=== PATIENT | male | born 1940 | race Caucasian/White ===

== ENCOUNTER 2017-01-29 16:21 | Inpatient (IN) | payer OTHER ==
[~2017-01-29] VITALS: Ht 182.9 cm; Wt 303.6 kg
[~2017-01-29 16:21] MED LIST: APRESOLINE50 MG PO; ASCORBIC ACID500 M3 PO; ASPIRIN81 M2 PO; BABY ASPIRIN81 M1 PO; BETHANECHOL CHL25 MG PO; BISACODYL5 MG PO; CARDIZEM CD,CA180 MG PO; DAILY VALUE1 EACH PO; DOCUSATE SODIU100 MG PO; DOXAZOSIN MESYLA2 MG PO; FINASTERIDE5 MG PO; GABAPENTIN100 MG PO; HEPARIN SO5000 UNITS SC; HYDRALAZINE HCL25 MG PO; HYDROCHLOROTHIA25 MG PO; LANTUS 10100 UNITS/ SC; LANTUS 3 M100 UNITS1 SC; LEVOTHROID75 MCG PO; LEVOTHYROXINE75 MCG PO; LISINOPRIL40 MG PO; LOSARTAN POTAS100 MG PO; MORGIDOX100 MG PO; NORVASC10 MG PO; NOVOLOG PE100 UNITS/ SC; PLAVIX75 MG PO; PRAVASTATIN SOD20 MG PO; PRAVASTATIN SOD40 MG PO; SENNA-TIME S T1 EACH PO; SENNA8.6 MG PO; TAMSULOSIN HCL0.4 MG PO; TOPROL XL50 MG PO; VITAMIN D3400 UNI2 PO; VITAMIN D400 UNIT PO; ZOCOR5 MG PO
[2017-01-29 16:34] LABS: MCHC 31.4 G/DL (30.0-36.0); MCV 101.8 FL (86-99); MEAN PLAT.VOLUME 10.2 uM^3 (9.0-12.4); PLATELET COUNT 182 K/uL (156-360); RBC DIS.WIDTH-CV 14.5 % (11.8-14.6); RED BLOOD COUNT 2.75 M/uL (4.00-5.50); WHITE BLOOD COUNT 6.7 K/uL (4.1-10.2)
[2017-01-29 16:35] LABS: POTASSIUM 4.1 mEq/L (3.7-5.4)
[2017-01-29 16:36] LABS: BASE EXCESS -7.1 mEq/L (-3 to +3); BICARBONATE 19.3 mEq/L (22-26); CARBOXY HGB 1.3 % (0-5); METHEMOGLOBIN 0.9 % (0-1.5); PCO2 42 mm Hg (35-45); PO2 380 mm Hg (80-100)
[2017-01-29 16:37] LABS: COMMENTS - BLOOD GASES A+C+; DEVICE VENT; FI02 100 %; MECHANICAL RATE 20 resp/min; MODE AC; PEEP 5 CM/H20; SITE LR; TIDAL VOLUME 500 ML; TOTAL RESP RATE 20 resp/min; pH 7.27 (7.35-7.45)
[2017-01-29] MEDS ORDERED: APRESOLINE100 MG PO (16:42)
[2017-01-29] MEDS ORDERED: LEVO-T88 MCG PO (16:42)
[2017-01-29] MEDS ORDERED: CARDIZEM CD,CA240 MG PO (16:47)
[2017-01-29 16:57] LABS: AMYLASE 28 IU/L (1-118); CHLORIDE 107 mEq/L (99-109); POTASSIUM 4.1 mEq/L (3.7-5.4); SODIUM 141 mEq/L (136-147)
[2017-01-29 16:58] LABS: GLUCOSE 342 mg/dL (70-99)
[2017-01-29 17:00] LABS: ANION GAP 17 MEQ/L (2-14)
[2017-01-29 17:02] LABS: GFR ESTIMATE (CALCULATED) 11 mL/min/; SERUM ETHYL ALCOHOL < 10 mg/dL
[2017-01-29 17:03] LABS: UREA NITROGEN (BUN) 73 mg/dL (9-23)
[2017-01-29 17:05] LABS: LIPASE 17 U/L (1.0-51.0)
[2017-01-29 17:07] LABS: INTER. NORMALIZED RATIO 1.2; PROTHROMBIN TIME 12.2 (9.2-11.2); PTT 24.6 (25-32)
[2017-01-29 17:08] LABS: TROP-I INTERPRETATION NEGATIVE; TROPONIN-I 0.12 ng/mL (0.0-0.30)
[2017-01-29 18:52] LABS: ADD MIUA? YES; BILIRUBIN NEGATIVE; BLOOD NEGATIVE; COLOR YELLOW ((YELLOW)); GLUCOSE (STRIP) 150; KETONES NEGATIVE; LEUKOCYTES LARGE; NITRITE NEGATIVE; PROTEIN (STRIP) >=500; SPECIFIC GRAVITY 1.016 (1.000-1.030); UROBILINOGEN 0.2 MG/DL (0.2-1.0)
[2017-01-29 19:03] LABS: AMPHETAMINE NEGATIVE (500 ng/mL); BARBITURATES NEGATIVE (200 ng/mL); BENZODIAZEPINES NEGATIVE (150 ng/mL); COCAINE NEGATIVE (150 ng/mL); INTERNAL CONTROLS VALID? YES; METHADONE NEGATIVE (200 ng/mL); METHAMPHETAMINE NEGATIVE (500 ng/mL); OPIATES (MORPHINE) NEGATIVE (100 ng/mL); OXYCODONE NEGATIVE (100 ng/mL); PHENCYCLIDINE NEGATIVE (25 ng/mL); PROPOXYPHENE NEGATIVE (300 ng/mL); THC CANNABINOIDS NEGATIVE (50 ng/mL); TRICYCLIC ANTIDEPRESSANTS NEGATIVE (300 ng/mL)
[2017-01-29 19:19] LABS: BASE EXCESS -5.4 mEq/L (-3 to +3); BICARBONATE 21.9 mEq/L (22-26); CARBOXY HGB 1.7 % (0-5); PCO2 51 mm Hg (35-45); PO2 147 mm Hg (80-100); SITE RR
[2017-01-29 19:20] LABS: COMMENTS - BLOOD GASES A+C+
[2017-01-29 19:21] LABS: DEVICE VENT; FI02 70 %; MECHANICAL RATE 20 resp/min; MODE ACVC; PEEP 7 CM/H20; TIDAL VOLUME 500 ML
[2017-01-29 19:22] LABS: pH 7.24 (7.35-7.45)
[2017-01-29 19:23] VITALS: BP 00/00
[2017-01-29 19:27] LABS: BACTERIA 3+ /HPF; CASTS NONE SEEN /LPF; EPITHELIAL CELLS RARE /HPF; MUCUS NONE SEEN /LPF; RED BLOOD CELLS NONE SEEN /HPF (0-5); UCUL ADDED? YES; WHITE BLOOD CELLS TNTC /HPF (0-5)
[2017-01-29 19:28] LABS: CRYSTALS NONE SEEN
[2017-01-29 20:55] LABS: ABS NEUTROPHIL COUNT 5.1; ANISOCYTOSIS 1+; EOSINOPHIL ABS CT 0.1; INSTRUMENT ABS NEUTROPHIL CT 4.6 K/uL; MACROCYTES 1+; PLAT.SUFFICIENCY ADEQUATE
== END 2017-01-29 20:20 | DRG 297 ==
LOC: EME 16:21 → EDOF 19:07
PROVIDERS: Emergency Medicine
DX: I46.9 Cardiac arrest, cause unspecified (principal); N18.4 Chronic kidney disease, stage 4 (severe); I50.9 Heart failure, unspecified; E03.9 Hypothyroidism, unspecified; Z86.73 Personal history of transient ischemic attack (TIA), and cerebral infarction without residual deficits; Z79.4 Long term (current) use of insulin; Z79.02 Long term (current) use of antithrombotics/antiplatelets; Z79.82 Long term (current) use of aspirin; Z51.5 Encounter for palliative care; Z66 Do not resuscitate
CPT/HCPCS: 36600; 70450; 71010; 80047; 80048; 81003; 82150; 82803; 83605; 83690; 84484; 85025; 85610; 85730; 86850; 86900; 86901; 87040; 87070; 87077; 87086; 87186; 87205; 93005; 94002; 99281; 99285; G0480; J0461; J2250